=== PATIENT | female | born 1960 | race Native Hawaiian/Other Pacific Islander ===

== ENCOUNTER 2016-12-25 08:39 | Outpatient (CLI) | payer OTHER | END 2016-12-25 10:30 | disposition home or self-care (01) | LOC: MAMMO 08:39 | DX: Z12.31 Encounter for screening mammogram for malignant neoplasm of breast (principal) | CPT/HCPCS: G0202-TC ==

== ENCOUNTER 2018-10-16 12:46 | Emergency (ER) | payer OTHER ==
[~2018-10-16] VITALS: Ht 160 cm; Wt 63.5 kg
[2018-10-16 15:17] VITALS: BP 166/94; TEMP 98
== END 2018-10-16 15:19 | disposition home or self-care (01) ==
LOC: ED 12:46
PROC: 0HQ1XZZ Repair Face Skin, External Approach (ICD-10-PCS; principal; 2018-10-16)
DX: S01.81XA Laceration without foreign body of other part of head, initial encounter (principal); W20.8XXA Other cause of strike by thrown, projected or falling object, initial encounter; Y92.098 Other place in other non-institutional residence as the place of occurrence of the external cause
CPT/HCPCS: 99283

== ENCOUNTER 2018-10-24 08:37 | Emergency (ER) | payer OTHER ==
[~2018-10-24] VITALS: Ht 160 cm; Wt 64.4 kg
[2018-10-24 08:45] VITALS: BP 145/92; TEMP 98.2
== END 2018-10-24 09:16 | disposition home or self-care (01) ==
LOC: ED 08:37
DX: Z48.02 Encounter for removal of sutures (principal)
CPT/HCPCS: 99282

== ENCOUNTER 2021-09-04 17:05 | Outpatient (CLI) | payer OTHER | END 2021-09-04 22:11 | disposition home or self-care (01) | LOC: LAB 17:05 | PROVIDERS: ATTEND Internal Medicine | DX: E03.8 Other specified hypothyroidism (principal) | CPT/HCPCS: 84439; 84443 ==